=== PATIENT | male | born 2000 | race Caucasian/White ===

== ENCOUNTER 2024-02-04 12:52 | Inpatient (IN) | payer OTHER, BC ==
[~2024-02-04] VITALS: Ht 177.8 cm; Wt 76.5 kg
[2024-02-04] MEDS: MORPHINE 4 MG/ML 1ML VIAL IV PRN ×2 (13:21→16:59)
[2024-02-04] MEDS: ONDANSETRON 4MG 2ML VIAL IV ONE (13:21)
[2024-02-04 14:04] LABS: HEMATOCRIT 43.4 % (42.0-52.0); HEMOGLOBIN 15.7 g/dl (13.5-17.5); MEAN CORPUSCULAR HEMOGLOBIN 30.8 pg (27.0-33.0); MEAN CORPUSCULAR HGB CONC 36.2 g/dl (32.0-36.5); MEAN CORPUSCULAR VOLUME 85.1 fl (80.0-96.0); PLATELET COUNT, AUTOMATED 218 10^3/uL (150-450); WHITE BLOOD COUNT 7.1 10^3/uL (4.0-10.0)
[2024-02-04] MEDS ORDERED: HOME MED LIST COMPLETE! XX SCH (14:25)
[2024-02-04] MEDS ORDERED: MOM 30ML SUSPENSION UDC PO PRN (14:25)
[2024-02-04 14:27] LABS: BLOOD UREA NITROGEN 19 MG/DL (9-23); CARBON DIOXIDE LEVEL 24 MMOL/L (20-31); CHLORIDE LEVEL 109 MMOL/L (98-107); CREATININE FOR GFR 1.01 MG/DL (0.70-1.30); GLOMERULAR FILTRATION RATE > 60.0 (>60); GLUCOSE, FASTING 100 MG/DL (60-100); POTASSIUM SERUM 4.8 MMOL/L (3.5-5.1); SODIUM LEVEL 141 MMOL/L (136-145)
[2024-02-04] MEDS: LIDOCAINE 5% (LIDODERM) PATCH TD SCH (14:53)
[2024-02-04] MEDS: CYCLOBENZAPRINE 5MG TABLET PO SCH (14:53)
[2024-02-04] MEDS: ACETAMINOPHEN 500 MG TAB PO SCH (14:53)
[2024-02-04] MEDS: DOCUSATE SODIUM 100MG CAPSULE PO SCH (14:53)
[2024-02-04 15:30] VITALS: BP 141/85; TEMP 98.2; O2SAT 98
[2024-02-04] MEDS: KETOROLAC 30 MG/ML 1ML VIAL IV SCH (15:59)
[2024-02-04 19:48] VITALS: BP 140/85; TEMP 98.1; O2SAT 96
[2024-02-05] VITALS (7 sets, daily range): BP systolic 119–139; BP diastolic 61–84; TEMP 97.7–98.1; O2SAT 96–97
[2024-02-05 06:51] LABS: HEMATOCRIT 39.3 % (42.0-52.0); MEAN CORPUSCULAR HEMOGLOBIN 30.7 pg (27.0-33.0); MEAN CORPUSCULAR HGB CONC 35.6 g/dl (32.0-36.5); MEAN CORPUSCULAR VOLUME 86.2 fl (80.0-96.0); PLATELET COUNT, AUTOMATED 218 10^3/uL (150-450); RED BLOOD COUNT 4.56 10^6/uL (4.30-6.10); WHITE BLOOD COUNT 7.8 10^3/uL (4.0-10.0)
[2024-02-05] MEDS: ceFAZolin 2 GM/D5W 50 ML IV BAG As Ordered ONE (08:42)
[2024-02-05] MEDS ORDERED: fentaNYL 100 MCG/2 ML INJECTION As Ordered ONE (08:45)
[2024-02-05] MEDS ORDERED: propofoL 200 MG/20 ML VIAL As Ordered ONE (08:45)
[2024-02-05] MEDS ORDERED: LIDOCAINE 2% 100MG/5ML SDV (FOR ANES.) As Ordered ONE (08:45)
[2024-02-05] MEDS ORDERED: MIDAZOLAM INJ 2MG/2ML VIAL As Ordered ONE (08:45)
[2024-02-05] MEDS ORDERED: ROCURONIUM BROMIDE 50MG/5ML VIAL As Ordered ONE (08:45)
[2024-02-05] MEDS ORDERED: ONDANSETRON 4MG 2ML VIAL As Ordered ONE (08:50)
[2024-02-05] MEDS ORDERED: SUGAMMADEX SODIUM 500 MG/5 ML VIAL (BRIDION) As Ordered ONE (08:52)
[2024-02-05] MEDS: TRANEXAMIC ACID 100 MG/ML 10ML VIAL As Ordered ONE (08:53)
[2024-02-05] MEDS ORDERED: HYDROmorphone HCL 2MG/ML 1ML VIAL As Ordered ONE (08:58)
[2024-02-05] MEDS ORDERED: KETOROLAC 60MG 2ML VIAL As Ordered ONE (09:03)
[2024-02-05] MEDS ORDERED: ONDANSETRON 4MG 2ML VIAL IV PRN (10:45)
[2024-02-05] MEDS ORDERED: SENNA 8.6 MG TAB (SENOKOT) PO PRN (10:45)
[2024-02-05] MEDS ORDERED: oxyCODONE 5MG TAB PO PRN (10:45)
[2024-02-05] MEDS: LR 1,000 ML IV SCH (10:45)
[2024-02-05 12:07] LABS: PERCENT SATURATION 18.9 % (19.7-50.0)
[2024-02-05 12:10] LABS: FERRITIN 112.6 NG/ML (10.5-307.3)
[2024-02-05] MEDS: NAPROXEN 250 MG TAB PO SCH (13:12)
[2024-02-05] MEDS ORDERED: KETOROLAC 30 MG/ML 1ML VIAL IV PRN (15:00)
[2024-02-05] MEDS: FERRIC CARBOXYMALTOSE INJ 750 MG, VIAL MATE ADAPTER 1 EACH in NS 250 ML IV ONE (15:31)
[2024-02-05] MEDS: oxyCODONE 5MG TAB PO PRN (15:33)
[2024-02-05] MEDS: ceFAZolin SOD 2 GM in IV 1 EA IV SCH (17:20)
[2024-02-05] MEDS: ASPIRIN 81MG ENTERIC TABLET PO SCH (20:05)
[2024-02-06] VITALS: BP 122/74; TEMP 97.8; O2SAT 98
[2024-02-06 04:16] VITALS: BP 121/69; TEMP 97.7; O2SAT 97
[2024-02-06 07:17] LABS: HEMATOCRIT 35.1 % (42.0-52.0); HEMOGLOBIN 12.4 g/dl (13.5-17.5); MEAN CORPUSCULAR HEMOGLOBIN 30.7 pg (27.0-33.0); MEAN CORPUSCULAR HGB CONC 35.3 g/dl (32.0-36.5); MEAN CORPUSCULAR VOLUME 86.9 fl (80.0-96.0); PLATELET COUNT, AUTOMATED 196 10^3/uL (150-450); RED BLOOD COUNT 4.04 10^6/uL (4.30-6.10); WHITE BLOOD COUNT 8.9 10^3/uL (4.0-10.0)
[2024-02-06 07:49] LABS: ALBUMIN 3.1 G/DL (3.2-5.2); ALKALINE PHOSPHATASE 36 U/L (46-116); ALT/SGPT 13 U/L (7.0-40); AST/SGOT 13 U/L (<34); BILIRUBIN,TOTAL 0.5 MG/DL (0.3-1.2); BLOOD UREA NITROGEN 13 MG/DL (9-23); CALCIUM LEVEL 8.4 MG/DL (8.5-10.1); CARBON DIOXIDE LEVEL 30 MMOL/L (20-31); CHLORIDE LEVEL 110 MMOL/L (98-107); CREATININE FOR GFR 1.04 MG/DL (0.70-1.30); GLOMERULAR FILTRATION RATE > 60.0 (>60); GLUCOSE, FASTING 98 MG/DL (60-100); POTASSIUM SERUM 4.1 MMOL/L (3.5-5.1); SODIUM LEVEL 144 MMOL/L (136-145); TOTAL PROTEIN 5.3 G/DL (5.7-8.2)
[2024-02-06] MEDS ORDERED: FERROUS SULFATE 325MG TAB PO SCH (09:00)
[2024-02-06] MEDS ORDERED: ASPI81TAEC PO (09:05)
[2024-02-06] MEDS ORDERED: ASCO50TA PO (09:05)
[2024-02-06] MEDS ORDERED: TRAM50TA2 PO (09:05)
[2024-02-06] MEDS ORDERED: ACET-683 PO (09:05)
[2024-02-06] MEDS ORDERED: CYCL5TAB PO (09:05)
[2024-02-06] MEDS ORDERED: IBUP1TAB7 PO (09:05)
[2024-02-06] MEDS: ASCORBIC ACID 500 MG TAB PO SCH (09:19)
[2024-02-06] MEDS ORDERED: FERR325T3 PO (10:21)
== END 2024-02-06 10:00 | disposition home or self-care (01) | DRG 494 ==
LOC: EDBD 12:52 → M ED 12:52 → M ED INP 14:23 → M MS5PR 15:20
PROVIDERS: ADMIT Student in an Organized Health Care Education/Training Program; ATTEND Student in an Organized Health Care Education/Training Program
PROC: 0QSG04Z Reposition Right Tibia with Internal Fixation Device, Open Approach (ICD-10-PCS; principal; 2024-02-05 08:30)
DX: S82.241A Displaced spiral fracture of shaft of right tibia, initial encounter for closed fracture (principal); S82.441A Displaced spiral fracture of shaft of right fibula, initial encounter for closed fracture; F17.200 Nicotine dependence, unspecified, uncomplicated; V28.09XA Other motorcycle driver injured in noncollision transport accident in nontraffic accident, initial encounter

== ENCOUNTER → 2024-02-09 | Outpatient (CLI) | payer BC, OTHER ==
[~2024-02-09] MED LIST: ACET-683 PO; ASCO50TA PO; ASPI81TAEC PO; CYCL5TAB PO; FERR325T3 PO; IBUP1TAB7 PO; TRAM50TA2 PO
== END ==
LOC: M SOG 08:16
PROVIDERS: ATTEND Orthopaedic Surgery
DX: Z53.9 Procedure and treatment not carried out, unspecified reason (principal)

== ENCOUNTER → 2024-02-09 | Outpatient (CLI) | payer BC, OTHER | LOC: M SOG 14:39 | PROVIDERS: ATTEND Orthopaedic Surgery | DX: Z47.89 Encounter for other orthopedic aftercare (principal) ==

== ENCOUNTER → 2024-03-03 | Outpatient (CLI) | payer OTHER | LOC: M SOG 07:58 | PROVIDERS: ATTEND Orthopaedic Surgery | DX: S82.241D Displaced spiral fracture of shaft of right tibia, subsequent encounter for closed fracture with routine healing (principal) ==

== ENCOUNTER → 2024-03-06 | Outpatient (CLI) | payer OTHER, BC ==
[2024-03-06 15:03] LABS: BASO % 0.3 % (0.0-1.0); EOS # 0.3 10^3/uL (0.0-0.5); EOS % 2.7 % (0.0-3.0); HEMATOCRIT 38.4 % (42.0-52.0); HEMOGLOBIN 13.3 g/dl (13.5-17.5); LYMPH # 1.4 10^3/uL (1.5-5.0); LYMPH % 12.2 % (24.0-44.0); MEAN CORPUSCULAR HEMOGLOBIN 31.1 pg (27.0-33.0); MEAN CORPUSCULAR HGB CONC 34.6 g/dl (32.0-36.5); MEAN CORPUSCULAR VOLUME 89.9 fl (80.0-96.0); MONO # 1.5 10^3/uL (0.0-0.8); NEUTROPHILS # 8.3 10^3/uL (1.5-8.5); NEUTROPHILS % 71.5 % (36.0-66.0); PLATELET COUNT, AUTOMATED 229 10^3/uL (150-450); RED BLOOD COUNT 4.27 10^6/uL (4.30-6.10); WHITE BLOOD COUNT 11.6 10^3/uL (4.0-10.0)
[2024-03-06 15:12] LABS: ERYTHROCYTE SEDIMENTATION RATE 37 mm/hr (0-15)
[2024-03-06 15:24] LABS: SOURCE, BODY FLUID RT KNEE; SYNOVIAL FLUID COLOR RED (COLORLESS)
[2024-03-06 15:32] LABS: CRYSTALS, BODY FLUID NONE SEEN (NONE SEEN); SOURCE, BODY FLUID CRYSTALS RT KNEE
== END ==
LOC: M RAD 13:13
PROVIDERS: ATTEND Orthopaedic Surgery
DX: L03.115 Cellulitis of right lower limb (principal)

== ENCOUNTER → 2024-03-16 | Outpatient (CLI) | payer OTHER, BC | LOC: M RAD 13:22 | PROVIDERS: ATTEND Orthopaedic Surgery | DX: S82.241A Displaced spiral fracture of shaft of right tibia, initial encounter for closed fracture (principal); Y93.9 Activity, unspecified; Y92.9 Unspecified place or not applicable ==

== ENCOUNTER → 2024-04-17 | Outpatient (CLI) | payer OTHER, BC | LOC: M SOG 07:58 | PROVIDERS: ATTEND Orthopaedic Surgery | DX: S82.241D Displaced spiral fracture of shaft of right tibia, subsequent encounter for closed fracture with routine healing (principal) ==

== ENCOUNTER → 2024-06-02 | Outpatient (CLI) | payer OTHER, BC | LOC: M SOG 07:50 | PROVIDERS: ATTEND Orthopaedic Surgery | DX: S82.241D Displaced spiral fracture of shaft of right tibia, subsequent encounter for closed fracture with routine healing (principal); Z53.9 Procedure and treatment not carried out, unspecified reason ==

== ENCOUNTER → 2024-06-16 | Outpatient (CLI) | payer OTHER, BC ==
[~2024-06-16] MED LIST changes: -CYCL5TAB PO; +CYCL5TAB4 PO
== END ==
LOC: M SOG 08:04
PROVIDERS: ATTEND Orthopaedic Surgery
DX: S82.241D Displaced spiral fracture of shaft of right tibia, subsequent encounter for closed fracture with routine healing (principal)

== ENCOUNTER → 2024-09-22 | Outpatient (CLI) | payer BC, OTHER | LOC: M SOG 07:56 | PROVIDERS: ATTEND Orthopaedic Surgery | DX: Z53.9 Procedure and treatment not carried out, unspecified reason (principal) ==

== ENCOUNTER → 2024-09-29 | Outpatient (CLI) | payer OTHER | LOC: M SOG 07:51 | PROVIDERS: ATTEND Orthopaedic Surgery | DX: Z53.9 Procedure and treatment not carried out, unspecified reason (principal) ==